=== PATIENT | female | born 1990 | race Caucasian/White ===

== ENCOUNTER 2019-05-04 20:02 | Emergency (ER) | payer MEDICAID, SELFPAY ==
[2019-05-04 20:04] VITALS: BP 122/81; PULSE 98; RESP 18; TEMP 36.6; O2SAT 98; BMI 44.6
--- NOTE | 2019-05-04 21:57 | ECG_ITS ---
Measurements Intervals [place] Rate: 81 P: 38 SD: 145 QRS: 23 QRSD: 102 T: 45 QT: 347 QTc: 405 SINUS RHYTHM WITH SINUS ARRHYTHMIA No previous ECG available for comparison Electronically Signed On 05-06-2019 8:59:41 CDT by Jaswinder Mora M.D. [email or web address]
--- NOTE | 2019-05-04 21:57 | XR_ITS ---
WS: [id number] Portable AP upright chest, 05/04/2019 Clinical Data: cp Comparison: Portable chest, 12/19/2011. Findings: No nodules, masses or effusions are seen. The heart is normal. The pulmonary vascularity is not increased. No pneumonia or pneumothorax is seen. Monitor leads are on the upper abdominal and lo wer chest wall. XR/XR chest 1V portable [id number] Impression: Negative chest.
--- NOTE | 2019-05-04 22:11 | ED_ITS ---
Entered by Caren Wall, acting as scribe for Moises Torres MD May 04, 2019 20:02 HPI - Back Pain/Injury General: Chief Complaint: Back Pain/Injury Stated Complaint: csection 04/16 Time Seen by Provider: 05/04/19 21:51 Source: patient Mode of arrival: ambulatory Limitations: no limitations History of Present Illness: HPI Narrative: Patient is a 29-year-old female who had a on April 16. She states over the last 2 to 3 days she been having some right sided chest and low back pain. States pain is been sharp in nature and is worse with inspiration. She is had some mild shortness of breath. She denies any vomiting. States pain is currently a 2 out of 10. She denies any vaginal discharge or bleeding. She has no history of any blood clots. Severity: mild Associated symptoms: Deny abdominal pain, chills, dysuria, fever(s), nausea or vomiting Review of Systems General: Reports: other (negative unless marked) Const: Denies: fever, chills, body aches or change in appetite Eyes: Denies: blurry vision or eye discomfort ENMT: Denies: throat pain or dental pain Card: Reports: chest pain Resp: Denies: shortness of breath GI: Denies: abdominal pain, nausea, vomiting or diarrhea : Denies: painful urination Musc: Denies: neck pain or back pain Skin/Breast: Denies: rash Neuro: Denies: headache Psych: Denies: depression Dalton/Lymph: Denies: easy bruising All/Imm: Denies: hives PFSH ED PFSH: Social History Smoking and tobacco status: never smoked Physical Exam Const: COMMON NORMALS: no apparent distress, oriented x3 and healthy appearing HENMT: COMMON NORMALS: normocephalic and head/scalp atraumatic HEAD & SCALP: normocephalic and atraumatic Eye: COMMON NORMALS: PERRL and EOMs intact bilaterally PUPIL: Yes PERRL Neck/C-Spine: COMMON NORMALS: full ROM and supple Chest: COMMONS NORMALS: inspection of chest normal and palpation of chest normal Resp: COMMON NORMALS: normal respiratory effort, no retractions, no use of accessory muscles and clear to auscultation bilaterally AUSCULTATION: clear to auscultation bilaterally Cardio: COMMON NORMALS: regular rate, regular rhythm and no murmurs RATE: regular rate RHYTHM: regular rhythm GI: COMMON NORMALS: normal to inspection, nondistended, normoactive bowel sounds, soft to palpation, non-tender and no masses PALPATION: Yes soft Extremity: COMMON NORMALS: normal to inspection and full ROM Neuro: COMMON NORMALS: oriented x3, moves all extremities and no focal motor deficits Psych: COMMON NORMALS: mental status grossly normal, thought process normal and cooperative THOUGHT PROCESS: normal thought process Skin: COMMON NORMALS: no rashes or lesions noted and no wounds GENERAL SKIN EXAM: no rashes or lesions noted Course Vital Signs: Vital signs: Vital Signs Temperature 97.9 F 05/04/19 20:04 Pulse Rate 78 05/05/19 00:29 Respiratory Rate 16 05/05/19 00:29 Blood Pressure 122/81 05/04/19 20:04 Pulse Oximetry 96 05/05/19 00:29 MDM - Back Pain/Injury MDM Narrative: Medical decision making narrative: Patient presents for chest wall pain that is likely muscular in origin. Patient CT of her chest here shows no signs of pulmonary embolism and CT abdomen is negative as well. Lab work is all normal besides elevated d-dimer. Patient is stable for discharge and is to follow-up with her primary care doctor in 3 to 5 days. I did inform her that her liver enzymes are mildly elevated and she is to follow with her doctor to have these rechecked. She is to return if worsening. Lab Data: Labs: Lab Results 05/04/19 05/04/19 05/04/19 Range/Units 22:14 22:14 22:14 WBC 8.8 (4.0-10.0) 10^3/ uL RBC 4.47 (4.1-5.3) 10^6/u L Hgb 11.5 (11.5-15.3) g/dL Hct 36.9 L (37.0-47.0) % MCV 82.6 (81-99) fL MCH 25.7 L (28.0-34.0) pg MCHC 31.2 (30.0-36.0) g/dL RDW 13.9 (12.1-15.1) % Plt Count 396 (130-400) 10^3/c mm MPV 11.5 H (7.4-10.4) fL Neut % (Auto) 76.9 % Lymph % (Auto) 14.0 % Lassen % (Auto) 7.1 % Eos % (Auto) 1.2 % Baso % (Auto) 0.5 % Neut # (Auto) 6.8 (1.8-7.7) 10^3/u L Lymph # (Auto) 1.2 (0.8-4.8) 10^3/u L Lassen # (Auto) 0.6 (0.2-0.9) 10^3/u L Eos # (Auto) 0.1 (0.0-0.8) 10^3/u L Baso # (Auto) 0.0 (0.0-0.1) 10^3/u L Nucleated RBC % (a uto) 0 % Nucleated RBCs # 0.0 /100WBC D-Dimer 2.25 H (0-0.59) ug/mIFE U Sodium 142 (136-145) mmol/L Potassium 3.8 (3.5-5.1) mmol/L Chloride 105 (98-107) mmol/L Carbon Dioxide 23 (22-29) mmol/L Anion Gap 17.8 (5-19) BUN 9 (6-20) mg/dL Creatinine 0.6 (0.5-0.9) mg/dL GFR Calculation 117.4 (90-130) mL/min Glucose 102 (65-115) mg/dL Calculated Osmolal ity 290 (285-295) mOsm/k g Calcium 9.5 (8.5-10.5) mg/dL Total Bilirubin 1.4 H (0.15-1.2) mg/dL AST 581 H (0-32) U/L ALT 513 H (0-33) U/L Alkaline Phosphata se 511 H (35-105) IU/L Total Protein 7.2 (6.6-8.7) g/dL Albumin 4.0 (3.5-5.2) g/dL Globulin 3.2 (1.3-4.6) g/dL Lipase 34 (13-60) U/L Imaging Data^: CT Chest: Radiologist's impression: [address] [place] [address] CT Scan Report Signed Patient: Clari Pascual Unit #: [id number] : 1990 Age/Sex: 29 / F ADM Date: 05/04/19 Loc: ER Room/Bed: Attending Dr: Ordering Provider/Ordering MD: Moises Torres MD Date of Service: 05/04/19 Procedure(s): CT angio chest w abd pel w con Accession Number(s): [id number] Report Number: [id number] PROCEDURE INFORMATION: Exam: CT Angiography Chest With Contrast Exam date and time: 05/04/2019 11:11 PM Age: 29 years old Clinical indication: Abdominal pain; Generalized; Chest pain; Type not specified; Patient HX: 18 days post , previous tumor removal left breast TECHNIQUE: Imaging protocol: Computed tomographic angiography of the chest with intravenous contrast. 3D rendering: MIP and/or 3D reconstructed images were created by the technologist. Total DLP: 2709.47 mGy-cm Radiation optimization: All CT scans at this facility use at least one of these dose optimization techniques: automated exposure control; mA and/or kV adjustment per patient size (includes targeted exams where dose is matched to clinical indication); or iterative reconstruction. Contrast material: OMNIPAQUE 350; Contrast volume: 95 ml; Contrast route: IV; COMPARISON: CR XR chest 1V portable [id number] 05/04/2019 10:18 PM FINDINGS: Pulmonary arteries: The pulmonary arteries are adequately opacified for evaluation to the subsegmental level. There is no filling defect to suggest embolism. Aorta: The thoracic aorta is normal. There is no aneurysm or dissection. Lungs: The right lung is clear. There is a benign calcified granuloma in the left lower lobe. There is no consolidation. Pleural space: Unremarkable. No pneumothorax. No pleural effusion. Heart: The heart is unremarkable. There is no pericardial effusion. Lymph nodes: There is no mediastinal or hilar lymphadenopathy. Bones/joints: Bones are unremarkable. Soft tissues: The extrathoracic soft tissues are unremarkable. IMPRESSION: No pulmonary embolism. PROCEDURE INFORMATION: Exam: CT Abdomen And Pelvis With Contrast Exam date and time: 05/04/2019 11:11 PM Age: 29 years old Clinical indication: Abdominal pain; Generalized; Chest pain; Type not specified; Patient HX: 18 days post , previous tumor removal left breast TECHNIQUE: Imaging protocol: Computed tomography of the abdomen and pelvis with intravenous contrast. Total DLP: 2709.47 mGy-cm Radiation optimization: All CT scans at this facility use at least one of these dose optimization techniques: automated exposure control; mA and/or kV adjustment per patient size (includes targeted exams where dose is matched to clinical indication); or iterative reconstruction. Contrast material: OMNIPAQUE 350; Contrast volume: 95 ml; Contrast route: IV; COMPARISON: CR XR chest 1V portable [id number] 05/04/2019 10:18 PM FINDINGS: Lungs: Lung bases are clear. Liver: The liver is normal. Gallbladder and bile ducts: The gallbladder is normal. There is no biliary dilation. Pancreas: The pancreas is unremarkable. Spleen: The spleen is mildly enlarged. Adrenals: The adrenal glands are unremarkable. Kidneys and ureters: The kidneys are unremarkable. No hydronephrosis or stones. No ureteral dilation. Stomach and bowel: The stomach is unremarkable. The small bowel is nondilated. There is no sign of inflammation. There is mild diverticulosis of the ascending colon without evidence of diverticulitis. Appendix: The appendix is normal. Intraperitoneal space: There is no free air or significant intraperitoneal free fluid. Vasculature: The aorta is unremarkable. There is no aneurysm. Lymph nodes: There is no lymphadenopathy in the retroperitoneum, mesentery, pelvis or inguinal regions. Bladder: The urinary bladder is unremarkable. Reproductive: There is fluid in the endometrial canal and minimal fat stranding along the anterior lower uterine segment consistent with recent section. There is no adnexal mass or cyst. Bones/joints: Bones are unremarkable. Soft tissues: The abdominal wall is intact. Intact transverse lower abdominal incision site. No seroma or hematoma. CT/CT angio chest w abd pel w con IMPRESSION: 1. No acute findings. 2. No apparent complications related to section. EKG Data^: EKG 1: Attestation: I personally reviewed and interpreted this EKG as follows: EKG interpretation date: 05/04/19 EKG interpretation time: 22:11 Interpretation: nsr hr [address] or t wave abnormalities qrs 102 qtc 385 Discharge Plan Discharge Patient Disposition: Home, Self-Care Clinical Impression: Chest wall pain Condition: Stable Prescriptions: New EC-Naprosyn 500 mg tablet,delayed release (DR/EC) 500 mg PO BID PRN (Reason: pain) Qty: 20 RF: 0 No Action ibuprofen 800 mg Tablet 800 mg PO Q4H PRN (Reason: Pain) RF: 0 No Known Home Medications RF: 0 clindamycin HCl RF: 0 Discharge Orders: Discharge Order (Routine); Ordered 05/05/19 Ordered By: Moises Torres Referrals: Rea Vargas APN [Primary Care Provider] - 4-7 days Discharge Diet: Advance as tolerated Discharge Activity: Resume usual activity Patient Instructions: Chest Pain - Chest Wall Discharge Date/Time: 05/05/19 00:29 Coding Level of Care Code ED Market Research Associate for Chg Fwd Exam Comprehensive The documentation recorded by the [facility] greene Stephanie Lyn, accurately ref lects the service I personally performed and the decisions made by Brian alvarenga Korby, MD May 04, 2019 20:02
[2019-05-04 22:29] LABS: Basophils % 0.5 %; Eosinophils # 0.1 10^3/uL (0.0-0.8); Eosinophils % 1.2 %; Hematocrit 36.9 % (37.0-47.0); Hemoglobin 11.5 g/dL (11.5-15.3); Lymphocytes # 1.2 10^3/uL (0.8-4.8); Mean Corpuscular HGB Conc 31.2 g/dL (30.0-36.0); Mean Corpuscular Hemoglobin 25.7 pg (28.0-34.0); Mean Corpuscular Volume 82.6 fL (81-99); Mean Platelet Volume 11.5 fL (7.4-10.4); Monocytes # 0.6 10^3/uL (0.2-0.9); Monocytes % 7.1 %; Neutrophils # 6.8 10^3/uL (1.8-7.7); Neutrophils % 76.9 %; Nucleated Red Blood Cells % 0 %; Platelet Count 396 10^3/cmm (130-400); Red Blood Count 4.47 10^6/uL (4.1-5.3); Red Cell Distribution Width 13.9 % (12.1-15.1); White Blood Count 8.8 10^3/uL (4.0-10.0)
[2019-05-04 22:39] LABS: D Dimer 2.25 ug/mIFEU (0-0.59)
[2019-05-04 22:42] LABS: Alanine Aminotransferase 513 U/L (0-33); Alkaline Phosphatase 511 IU/L (35-105); Anion Gap 17.8 (5-19); Aspartate Amino Transferase 581 U/L (0-32); Blood Urea Nitrogen 9 mg/dL (6-20); Calcium 9.5 mg/dL (8.5-10.5); Carbon Dioxide 23 mmol/L (22-29); Chloride 105 mmol/L (98-107); Creatinine Clr Calc Pharmacy 173.1343; Globulin 3.2 g/dL (1.3-4.6); Glomerular Filtration Rate 117.4 mL/min (90-130); Glucose 102 mg/dL (65-115); Lipase 34 U/L (13-60); Osmolality Calculated 290 mOsm/kg (285-295); Potassium 3.8 mmol/L (3.5-5.1); Sodium 142 mmol/L (136-145); Total Bilirubin 1.4 mg/dL (0.15-1.2); Total Protein 7.2 g/dL (6.6-8.7)
--- NOTE | 2019-05-04 22:45 | CTR_ITS ---
PROCEDURE INFORMATION: Exam: CT Angiography Chest With Contrast Exam date and time: 05/04/2019 11:11 PM Age: 29 years old Clinical indication: Abdominal pain; Generalized; Chest pain; Type not specified; Patient HX: 18 days post , previous tumor removal left breast TECHNIQUE: Imaging protocol: Computed tomographic angiography of the chest with intravenous contrast. 3D rendering: MIP and/or 3D reconstructed images were created by the technologist. Total DLP: 2709.47 mGy-cm Radiation optimization: All CT scans at this facility use at least one of these dose optimization techniques: automated exposure control; mA and/or kV adjustment per patient size (includes targeted exams where dose is matched to clinical indication); or iterative reconstruction. Contrast material: OMNIPAQUE 350; Contrast volume: 95 ml; Contrast route: IV; COMPARISON: CR XR chest 1V portable [id number] 05/04/2019 10:18 PM FINDINGS: Pulmonary arteries: The pulmonary arteries are adequately opacified for evaluation to the subsegmental level. There is no filling defect to suggest embolism. Aorta: The thoracic aorta is normal. There is no aneurysm or dissection. Lungs: The right lung is clear. There is a benign calcified granuloma in the left lower lobe. There is no consolidation. Pleural space: Unremarkable. No pneumothorax. No pleural effusion. Heart: The heart is unremarkable. There is no pericardial effusion. Lymph nodes: There is no mediastinal or hilar lymphadenopathy. Bones/joints: Bones are unremarkable. Soft tissues: The extrathoracic soft tissues are unremarkable. IMPRESSION: No pulmonary embolism. PROCEDURE INFORMATION: Exam: CT Abdomen And Pelvis With Contrast Exam date and time: 05/04/2019 11:11 PM Age: 29 years old Clinical indication: Abdominal pain; Generalized; Chest pain; Type not specified; Patient HX: 18 days post , previous tumor removal left breast TECHNIQUE: Imaging protocol: Computed tomography of the abdomen and pelvis with intravenous contrast. Total DLP: 2709.47 mGy-cm Radiation optimization: All CT scans at this facility use at least one of these dose optimization techniques: automated exposure control; mA and/or kV adjustment per patient size (includes targeted exams where dose is matched to clinical indication); or iterative reconstruction. Contrast material: OMNIPAQUE 350; Contrast volume: 95 ml; Contrast route: IV; COMPARISON: CR XR chest 1V portable [id number] 05/04/2019 10:18 PM FINDINGS: Lungs: Lung bases are clear. Liver: The liver is normal. Gallbladder and bile ducts: The gallbladder is normal. There is no biliary dilation. Pancreas: The pancreas is unremarkable. Spleen: The spleen is mildly enlarged. Adrenals: The adrenal glands are unremarkable. Kidneys and ureters: The kidneys are unremarkable. No hydronephrosis or stones. No ureteral dilation. Stomach and bowel: The stomach is unremarkable. The small bowel is nondilated. There is no sign of inflammation. There is mild diverticulosis of the ascending colon without evidence of diverticulitis. Appendix: The appendix is normal. Intraperitoneal space: There is no free air or significant intraperitoneal free fluid. Vasculature: The aorta is unremarkable. There is no aneurysm. Lymph nodes: There is no lymphadenopathy in the retroperitoneum, mesentery, pelvis or inguinal regions. Bladder: The urinary bladder is unremarkable. Reproductive: There is fluid in the endometrial canal and minimal fat stranding along the anterior lower uterine segment consistent with recent section. There is no adnexal mass or cyst. Bones/joints: Bones are unremarkable. Soft tissues: The abdominal wall is intact. Intact transverse lower abdominal incision site. No seroma or hematoma. CT/CT angio chest w abd pel w con IMPRESSION: 1. No acute findings. 2. No apparent complications related to section. Radiation Dose CTDIVOL = (mGy): DLP = 2709.47~2709.47 (mGy-cm)
[2019-05-04] MEDS: iohexol 350 mg/mL 100 mL Btl IV (23:18)
[2019-05-05 00:29] VITALS: PULSE 78; RESP 16; O2SAT 96
== END 2019-05-05 00:29 | disposition home or self-care (01) ==
PROVIDERS: Emergency Provider Emergency Medicine; Family Provider Nurse Practitioner Family; PCP Nurse Practitioner Family
DX: R07.89 Other chest pain (principal)
CPT/HCPCS: 12345; 36415; 71045; 71275; 74177; 80053; 83690; 85025; 85378; 93005; 99282; 99284; Q9967

== ENCOUNTER 2019-05-06 17:11 | Emergency (ER) | payer MEDICAID, SELFPAY ==
[2019-05-06 17:33] VITALS: BP 151/91; PULSE 88; RESP 16; TEMP 37.4; O2SAT 99; BMI 46.0
[2019-05-06 18:14] LABS: Basophils % 0.4 %; Eosinophils # 0.2 10^3/uL (0.0-0.8); Eosinophils % 2.3 %; Hematocrit 37.3 % (37.0-47.0); Hemoglobin 11.3 g/dL (11.5-15.3); Lymphocytes # 1.5 10^3/uL (0.8-4.8); Lymphocytes % 15.9 %; Mean Corpuscular HGB Conc 30.3 g/dL (30.0-36.0); Mean Corpuscular Hemoglobin 25.3 pg (28.0-34.0); Mean Corpuscular Volume 83.4 fL (81-99); Mean Platelet Volume 10.8 fL (7.4-10.4); Monocytes # 0.6 10^3/uL (0.2-0.9); Monocytes % 6.4 %; Neutrophils # 6.9 10^3/uL (1.8-7.7); Neutrophils % 74.2 %; Nucleated Red Blood Cells % 0 %; Platelet Count 408 10^3/cmm (130-400); Red Blood Count 4.47 10^6/uL (4.1-5.3); Red Cell Distribution Width 14.1 % (12.1-15.1); White Blood Count 9.3 10^3/uL (4.0-10.0)
[2019-05-06 18:34] LABS: Alanine Aminotransferase 664 U/L (0-33); Albumin Level 4.1 g/dL (3.5-5.2); Alkaline Phosphatase 471 IU/L (35-105); Anion Gap 15.5 (5-19); Aspartate Amino Transferase 225 U/L (0-32); Blood Urea Nitrogen 7 mg/dL (6-20); Calcium 9.4 mg/dL (8.5-10.5); Carbon Dioxide 26 mmol/L (22-29); Chloride 104 mmol/L (98-107); Globulin 3.1 g/dL (1.3-4.6); Glomerular Filtration Rate 117.4 mL/min (90-130); Glucose 95 mg/dL (65-115); Osmolality Calculated 290 mOsm/kg (285-295); Potassium 3.5 mmol/L (3.5-5.1); Sodium 142 mmol/L (136-145); Total Bilirubin 0.4 mg/dL (0.15-1.2); Total Protein 7.2 g/dL (6.6-8.7)
[2019-05-06 18:43] VITALS: RESP 18
--- NOTE | 2019-05-06 18:56 | ED_ITS ---
Entered by Marjorie Mendoza, acting as scribe for Keyonna Lucas MD May 06, 2019 17:11 HPI - General Adult General: Chief complaint: General Medical Stated complaint: NOT FEELING WELL Time Seen by Provider: 05/06/19 18:42 Source: patient, RN notes reviewed and old records reviewed Mode of arrival: ambulatory Limitations: no limitations History of Present Illness: HPI narrative: 29 yo female presents to ED with complaints of RUQ abdominal pain. The patient was seen at [facility] yesterday (faxed medical record release at 1716 to [phone]). The patient stated her lab results were significantly different there yesterday morning than what they were here yesterday evening. She said she no longer has a crushing pain in her R shoulder and chest but it is now a shooting pain going from the R side of her neck to her tailbone, including her R shoulder and R side. She states the doctor at [facility] said she needed an ultrasound of her gallbladder. She said she felt like she had a fever last night (no thermometer). complaint: RUQ tenderness Onset (ago): day(s) (2) Location: abdomen and right Radiation: back and neck Severity: moderate Quality: stabbing Pain Consistency: constant Relieving factors: none Exacerbating factors: none Associated symptoms: Deny chest pain, dyspnea, headache(s), nausea, rash or vomiting Treatments prior to arrival: NSAID Review of Systems General: Reports: 10 or more systems reviewed and unremarkable except in HPI and below Const: Denies: fever or chills Eyes: Denies: change in vision ENMT: Denies: throat pain Card: Denies: chest pain Resp: Denies: shortness of breath GI: Denies: abdominal pain, nausea, vomiting or change in bowel habits : Denies: difficulty urinating Musc: Denies: muscle weakness Skin/Breast: Denies: rash Neuro: Denies: headache Psych: Denies: hopelessness or suicidal ideation Endo: Denies: excessive urination Dalton/Lymph: Denies: easy bruising or easy bleeding All/Imm: Denies: hives PFSH ED PFSH: Social History Smoking and tobacco status: never smoked Physical Exam Const: COMMON NORMALS: no apparent distress, average body habitus, oriented x 3, no limitations, healthy appearing, alert and well nourished HENMT: COMMON NORMALS: normocephalic, external ears normal and external nose normal HEAD & SCALP: normocephalic NOSE: external nose normal EXTERNAL EAR: Yes external ears normal MOUTH: oral and palatal mucosa normal THROAT: posterior oropharynx normal Eye: COMMON NORMALS: PERRL, EOMs intact bilaterally, conjunctivae normal, no scleral icterus and normal visual [place] by confrontation CONJUNCTIVA: Yes conjunctivae normal PUPIL: Yes PERRL Neck/C-Spine: COMMON NORMALS: full ROM, no lymphadenopathy, supple, no me ningeal signs and no JVD CERVICAL SPINE: Yes cervical ROM normal Lymph: LYMPHATIC: no lymphadenopathy noted Chest: COMMONS NORMALS: inspection of chest normal Resp: COMMON NORMALS: normal respiratory effort, no retractions, no use of accessory muscles and clear to auscultation bilaterally EFFORT & INSPECTION: Yes able to speak in complete sentences AUSCULTATION: clear to auscultation bilaterally Cardio: COMMON NORMALS: no JVD, regular rate, regular rhythm, no gallops, no clicks, no murmurs and no rub RATE: regular rate RHYTHM: regular rhythm GI: COMMON NORMALS: normal to inspection, nondistended, normoactive bowel sounds, soft to palpation and non-tender INSPECTION: Yes normal to inspection AUSCULTATION: Yes normoactive bowel sounds PALPATION: Yes soft : COMMON NORMALS: Yes no CVA tenderness BLADDER/KIDNEY EXAM: Yes no CVA tenderness Back/Pelvis: COMMON NORMALS: no CVA tenderness OTHER: Normal range of motion Extremity: COMMON NORMALS: normal to inspection GENERAL: Yes normal exam except as noted Neuro: COMMON NORMALS: oriented x3 SENSORIUM/ORIENTATION: Yes alert MENINGEAL SIGNS: Yes no meningeal signs SPEECH: speech normal Psych: COMMON NORMALS: mental status grossly normal, thought process normal, cooperative, affect normal, speech normal, activity/motor behavior normal, denies hallucinations, denies homicidal ideation and denies suicidal ideation SPEECH: Yes normal speech THOUGHT PROCESS: normal thought process Skin: COMMON NORMALS: no rashes or lesions noted GENERAL SKIN EXAM: no rashes or lesions noted Course Vital Signs: Vital signs: Vital Signs Temperature 99.4 F 05/06/19 17:33 Pulse Rate 88 05/06/19 17:33 Respiratory Rate 18 05/06/19 18:43 Blood Pressure 151/91 05/06/19 17:33 Pulse Oximetry 99 05/06/19 17:33 MDM - General Adult MDM Narrative: Medical decision making narrative: Patient in no acute distress. We were able to get her records from [facility] which will be scanned in the computer. On 05/04/2019 LFTs were approximately 500 range, at [facility] they were double that yesterday when she was seen there this was [facility]. On recheck today they are back down to 500 and lower than on 05 03. As I discussed with her, I do not think that her LFTs are the cause of her pain more likely it is the increased stool burden on her imaging and will send her home with a bottle of mag citrate and she will start taking MiraLAX. She tells me that she did not have a bowel movement for 2 weeks prior to having her baby and she is had intermittent problems with constipation. Lab Data: Labs: Lab Results 05/06/19 05/06/19 Range/Units 18:08 18:08 WBC 9.3 (4.0-10.0) 10^3/ uL RBC 4.47 (4.1-5.3) 10^6/u L Hgb 11.3 L (11.5-15.3) g/dL Hct 37.3 (37.0-47.0) % MCV 83.4 (81-99) fL MCH 25.3 L (28.0-34.0) pg MCHC 30.3 (30.0-36.0) g/dL RDW 14.1 (12.1-15.1) % Plt Count 408 H (130-400) 10^3/c mm MPV 10.8 H (7.4-10.4) fL Neut % (Auto) 74.2 % Lymph % (Auto) 15.9 % Frio % (Auto) 6.4 % Eos % (Auto) 2.3 % Baso % (Auto) 0.4 % Neut # (Auto) 6.9 (1.8-7.7) 10^3/u L Lymph # (Auto) 1.5 (0.8-4.8) 10^3/u L Frio # (Auto) 0.6 (0.2-0.9) 10^3/u L Eos # (Auto) 0.2 (0.0-0.8) 10^3/u L Baso # (Auto) 0.0 (0.0-0.1) 10^3/u L Nucleated RBC % (a uto) 0 % Nucleated RBCs # 0.0 /100WBC Sodium 142 (136-145) mmol/L Potassium 3.5 (3.5-5.1) mmol/L Chloride 104 (98-107) mmol/L Carbon Dioxide 26 (22-29) mmol/L Anion Gap 15.5 (5-19) BUN 7 (6-20) mg/dL Creatinine 0.6 (0.5-0.9) mg/dL GFR Calculation 117.4 (90-130) mL/min Glucose 95 (65-115) mg/dL Calculated Osmolal ity 290 (285-295) mOsm/k g Calcium 9.4 (8.5-10.5) mg/dL Total Bilirubin 0.4 (0.15-1.2) mg/dL AST 225 H (0-32) U/L ALT 664 H (0-33) U/L Alkaline Phosphata se 471 H (35-105) IU/L Total Protein 7.2 (6.6-8.7) g/dL Albumin 4.1 (3.5-5.2) g/dL Globulin 3.1 (1.3-4.6) g/dL Imaging Data^: KUB: Attestation: I personally reviewed and interpreted this imaging study as follows: My impression: Significant increased stool burden no free air Discharge Plan Discharge Patient Disposition: Home, Self-Care Clinical Impression: Abdominal pain Qualifiers: Abdominal location: generalized Qualified Code(s): R10.84 - Generalized abdominal pain Constipation Qualifiers: Constipation type: unspecified constipation type Qualified Code(s): K59.00 - Constipation, unspecified Condition: Stable Prescriptions: No Action ibuprofen 800 mg Tablet 800 mg PO Q4H PRN (Reason: Pain) RF: 0 clindamycin HCl 300 mg PO TID RF: 0 Referrals: Rea Vargas APN [Primary Care Provider] - Patient Instructions: Constipation (ED), Abdominal Pain (ED) Activity Restrictions/Additional Instructions: Drink the entire bottle of magnesium citrate when you get home. Start taking MiraLAX as well [id number]. He will need to follow-up with a primary care provider to monitor your liver enzymes as we discussed. Coding Level of Care Code ED E Marketing Specialist for Chg Fwd Exam Comprehensive The documentation recorded by the Reji greene Valerie R, accurately reflects the service I personally performed and the decisions made by me, Keyonna Lucas MD May 06, 2019 17:11
--- NOTE | 2019-05-06 19:09 | XR_ITS ---
WS: [id number] KUB, 05/06/2019 Clinical Data: abd pain, constipation Comparison: None. Findings: No abnormal intraabdominal masses or calcifications are seen. There is no dilatated small bowel or ev idence of obstruction. There is fecal material throughout the colon. The bladder is partly full. XR/XR KUB portable [id number] Impression: Negative KUB.
[2019-05-06] MEDS: magnesium citrate Btl 296 mL 150 ML PO (20:38)
[2019-05-06] MEDS: cyclobenzaprine 10 mg Tablet PO (20:38)
[2019-05-06 20:39] VITALS: BP 128/77; PULSE 87; RESP 18; O2SAT 97
--- NOTE | 2019-05-07 11:12 | DCPLANNER ---
Addendum entered by Georgia Castle 05/07/19 11:26: manager intelligence tried to call patient again, this time patients answered the phone, gave him the appointment information. Original Note: manager intelligence had message to speak with patient about getting established with a primary care physician. manager intelligence spoke with patient about getting established with a primary care physician. Patient stated at first that she was not sure that she wanted to follow up with anyone. manager intelligence explained to patient that nurse outreach case manager had message to speak with patient about getting established with a primary care physician, and if patient would like for me to get a follow up appointment scheduled that nurse outreach case manager would be more than happy to schedule a follow up appointment for patient. manager intelligence gave patient the options of Lina Kwong or [place] [facility] patient stated that she would like to be established with Dr. Glasgow. manager intelligence [place] [facility] spoke with Lise, a follow up appointment was scheduled for Saturday, May 27, 2019 at 10:[address] Glasgow. manager intelligence called patient back, she did not answer the phone and no voicemail set up to inform patient of the scheduled appointment. manager intelligence will send patient a letter with the appointment information.
--- NOTE | 2019-07-21 07:41 | DCPLANNER ---
Patient did not attend appointment scheduled for 05.27.19 with [facility] [place].
== END 2019-05-06 20:39 | disposition home or self-care (01) ==
PROVIDERS: Emergency Provider Emergency Medicine; Family Provider Nurse Practitioner Family; PCP Nurse Practitioner Family
DX: R10.9 Unspecified abdominal pain (principal); K59.00 Constipation, unspecified
CPT/HCPCS: 12345; 36415; 74018; 80053; 85025; 99281; 99283

== ENCOUNTER 2019-05-10 08:09 | Emergency (ER) | payer MEDICAID, SELFPAY ==
[2019-05-10 08:10] VITALS: BP 129/75; PULSE 72; RESP 16; TEMP 36.6; O2SAT 98; BMI 46.0
--- NOTE | 2019-05-10 08:22 | ED_ITS ---
HPI - General Adult General: Chief complaint: General Medical Stated complaint: back pain Time Seen by Provider: 05/10/19 08:15 History of Present Illness: HPI narrative: Patient is a 29-year-old female who comes to the ED with back pain. She describes the back pain as on the right side of the thoracic region of her back. Patient says pain started on May 03. Patient did have a 3 weeks ago. She has been to this ED 2 times in the past week and a half for same complaint. She also was seen at [facility] for the same complaint. She states each time make an extensive work-up was performed including labs and a CT scan and no identifiable cause. Patient was told to take ibuprofen for pain and she says it is not helping. Denies any bladder or bowel symptoms. Patient is not breast-feeding her child, she is using formula. Associated symptoms: Deny chest pain, dyspnea, headache(s), nausea, rash, palpitations or vomiting Review of Systems 2 Const: Denies: fever, chills or fatigue Eyes: Denies: change in vision or eye discomfort ENMT: Denies: throat pain, painful swallowing, nasal discharge or nasal congestion Card: Denies: chest pain, palpitations, edema, swelling of feet/ankles, shortness of breath on exertion or shortness of breath when lying down Resp: Denies: shortness of breath, productive cough or non-productive cough GI: Denies: abdominal pain, nausea, vomiting, diarrhea, constipation or blood in stool : Denies: flank pain, painful urination or blood in urine Musc: Reports: back pain (Right side mid thoracic); Denies: neck pain or extremity swelling Skin/Breast: Denies: rash or new lesion Neuro: Denies: headache, numbness in extremities or weakness in extremities [facility] ED PFSH: Social History Smoking and tobacco status: never smoked Physical Exam Narrative: EXAM NARRATIVE: Patient is a 29-year-old female who is sitting comfortably on the exam bed when I enter the room she appears in no acute distress or acute pain. I witnessed patient carrying a diaper bag and and baby with a carrier she came into the ED. She did not appear to have any pain when walking back to the room while carrying a bag and baby. Const: COMMON NORMALS: oriented x3 HENMT: COMMON NORMALS: normocephalic HEAD & SCALP: normocephalic MOUTH: oral and palatal mucosa normal THROAT: posterior oropharynx normal and uvula midline Neck/C-Spine: COMMON NORMALS: supple GENERAL: Yes normal visual inspection Resp: COMMON NORMALS: normal respiratory effort, no retractions, no use of accessory muscles and clear to auscultation bilaterally AUSCULTATION: clear to auscultation bilaterally Cardio: COMMON NORMALS: regular rate, regular rhythm, S1 normal heart sound, S2 normal heart sound, no gallops, no clicks, no murmurs and peripheral pulses 2+ throughout RATE: regular rate RHYTHM: regular rhythm HEART SOUNDS: S1 normal and S2 normal PERIPHERAL PULSES: pulses 2+ throughout GI: COMMON NORMALS: normal to inspection, nondistended, normoactive bowel sounds, soft to palpation, non-tender and no masses PALPATION: Yes soft : COMMON NORMALS: Yes no CVA tenderness BLADDER/KIDNEY EXAM: Yes no CVA tenderness Back/Pelvis: COMMON NORMALS: no CVA tenderness THORACIC SPINE/UPPER BACK: Yes paraspinal muscle tenderness Thoracic paraspinal muscle tenderness: right Extremity: COMMON NORMALS: normal to inspection Neuro: COMMON NORMALS: oriented x3 and moves all extremities Skin: COMMON NORMALS: no rashes or lesions noted GENERAL SKIN EXAM: no rashes or lesions noted and dry skin Course ED course: I asked the patient if she is breast-feeding her child and she said no she is not she is using formula. Mother said the baby was not gaining sufficient weight so the doctor told her to switch to all formula. I informed the mother about the risks of breast-feeding while taking medication like tramadol or Robaxin. Mother understood risk and said she is not breast-feeding and will not breast-feed while taking these medications. Vital Signs: Vital signs: Vital Signs Temperature 97.8 F 05/10/19 08:10 Pulse Rate 72 05/10/19 08:10 Respiratory Rate 16 05/10/19 08:10 Blood Pressure 129/75 05/10/19 08:10 Pulse Oximetry 98 05/10/19 08:10 Discharge Plan Discharge Patient Disposition: Home, Self-Care Clinical Impression: Thoracic back pain Qualifiers: Chronicity: acute Back pain laterality: right Qualified Code(s): M54.6 - Pain in thoracic spine Condition: Stable Prescriptions: New Robaxin-750 750 mg tablet 750 mg PO Q8H Qty: 10 RF: 0 No Action ibuprofen 800 mg Tablet 800 mg PO Q4H PRN (Reason: Pain) RF: 0 clindamycin HCl 300 mg PO TID RF: 0 Discharge Orders: Discharge Order (Routine); Ordered 05/10/19 Ordered By: Steve Castaneda Referrals: Rea Vargas APN [Primary Care Provider] - Discharge Diet: Regular Discharge Activity: Resume usual activity and Increase activity as tolerated Patient Instructions: Back Pain (ED) Activity Restrictions/Additional Instructions: Follow-up with your PCP in 7 days for reevaluation. Take the tramadol and Robaxin as prescribed. Remember that Robaxin can be sedating so take at night before bed. You can apply ice and/or warm heat to back to help with some relief. Drink plenty fluids and stay hydrated. Go to your regularly scheduled follow-up appointment post . Discharge Date/Time: 05/10/19 09:13 Coding Level of Care Code ED General Partner for Samrag Fwd Exam Comprehensive
[2019-05-10] MEDS: TRAMadol 50 mg Tablet 100 MG PO (08:55)
== END 2019-05-10 09:13 | disposition home or self-care (01) ==
PROVIDERS: Emergency Provider Physician Assistant; Family Provider Nurse Practitioner Family; PCP Nurse Practitioner Family
DX: M54.6 Pain in thoracic spine (principal)
CPT/HCPCS: 12345; 99281; 99283

== ENCOUNTER 2019-06-12 12:17 | Outpatient (CLI) | payer MEDICAID, SELFPAY ==
--- NOTE | 2019-06-12 10:15 | US_ITS ---
WS: [id number] RIGHT UPPER QUADRANT ULTRASOUND HISTORY: abdominal Pain COMPARISON: None available. Liver: 17.5 cm in length. Coarsened echotexture from hepatic steatosis. No bile duct dilatation. Gallbladder: Well distended gallbladder. There are tiny foci with minimal shadowing in the gallbladde r consistent with stones. No gallbladder wall thickening. CBD: 0.7 cm, mildly enlarged. Pancreas: Poorly visualized. Right kidney: 12.5 cm in length. Normal echogenicity with no mass or hydronephrosis. Aorta and IVC: Unremarkable. No ascites. US/US gall bladder [id number] IMPRESSION: 1. Cholelithiasis without evidence for acute cholecystitis. 2. Common bile duct is top normal size. Similar to the prior CT from 05/04/2019.
== END 2019-06-12 12:18 | disposition home or self-care (01) ==
LOC: RADWPI 12:21
PROVIDERS: Family Provider Nurse Practitioner Family; PCP Nurse Practitioner Family; Visit Provider Surgery
DX: R10.9 Unspecified abdominal pain (principal); K80.20 Calculus of gallbladder without cholecystitis without obstruction
CPT/HCPCS: 76705

== ENCOUNTER → 2022-06-07 11:15 | Outpatient (BNVA) | payer MEDICAID, SELFPAY | PROVIDERS: Family Provider Nurse Practitioner Family; PCP Nurse Practitioner Family; Visit Provider Nurse Practitioner Family | DX: G43.909 Migraine, unspecified, not intractable, without status migrainosus (principal); N64.4 Mastodynia; Z13.6 Encounter for screening for cardiovascular disorders | CPT/HCPCS: 80053; 80061; 81025; 82607; 83735; 84146; 84443; 85025 ==

== ENCOUNTER → 2023-01-10 10:02 | Outpatient (BNVA) | payer MEDICAID, SELFPAY | PROVIDERS: Family Provider Nurse Practitioner Family; PCP Nurse Practitioner Family; Visit Provider Nurse Practitioner Family | DX: M25.50 Pain in unspecified joint (principal); G62.9 Polyneuropathy, unspecified; K58.9 Irritable bowel syndrome, unspecified; M79.10 Myalgia, unspecified site; E66.9 Obesity, unspecified; K21.9 Gastro-esophageal reflux disease without esophagitis; K76.0 Fatty (change of) liver, not elsewhere classified; R00.2 Palpitations; G43.909 Migraine, unspecified, not intractable, without status migrainosus; G89.29 Other chronic pain; M54.9 Dorsalgia, unspecified; R11.0 Nausea | CPT/HCPCS: 80053; 80307; 82306; 82607; 82746; 85651; 86003; 86008; 86140; 86200; 86431; 86618; 86666; 86705; 86706; 86709; 86757; 86803; 87340 ==

== ENCOUNTER 2023-01-23 08:36 | Outpatient (CLI) | payer MEDICAID, SELFPAY ==
--- NOTE | 2023-01-23 09:30 | US_ITS ---
WS: [id number] RIGHT UPPER QUADRANT ULTRASOUND HISTORY: fatty liver, N/V COMPARISON: 06/12/2019 Liver: 18.3 cm in length. Liver is measuring top normal size. Coarse echotexture throughout the liver . Smooth surface of the liver. No mass identified. Normal bile ducts. Portal Vein: Normal hepatopetal flow with monophasic waveform. Gallbladder: Normally distended gallbladder with stones. No pericholecystic fluid. CBD: 0.7 cm Pancreas: Normal size and echogenicity. Right kidney: 12.5 cm in length. Normal size and echogenicity. No hydronephrosis or mass. Aorta and IVC: Unremarkable abdominal aorta and IVC. No ascites. IMPRESSION: 1. Mild hepatic steatosis and hepatomegaly. Similar to the prior study from 2019. 2. Cholelithiasis without acute cholecystitis.
== END 2023-01-23 08:37 | disposition home or self-care (01) ==
LOC: RAD 08:36
PROVIDERS: Family Provider Nurse Practitioner Family; PCP Nurse Practitioner Family; Visit Provider Nurse Practitioner Family
DX: K76.0 Fatty (change of) liver, not elsewhere classified (principal); R11.2 Nausea with vomiting, unspecified; R16.0 Hepatomegaly, not elsewhere classified; K80.20 Calculus of gallbladder without cholecystitis without obstruction
CPT/HCPCS: 76705

== ENCOUNTER → 2023-01-25 08:54 | Outpatient (BNVA) | payer MEDICAID, SELFPAY | PROVIDERS: Family Provider Nurse Practitioner Family; PCP Nurse Practitioner Family; Visit Provider Nurse Practitioner Family | DX: M54.9 Dorsalgia, unspecified (principal); G89.29 Other chronic pain | CPT/HCPCS: 72100 ==

== ENCOUNTER → 2023-04-12 11:55 | Outpatient (BNVA) | payer MEDICAID, SELFPAY | PROVIDERS: Family Provider Nurse Practitioner Family; PCP Nurse Practitioner Family; Visit Provider Nurse Practitioner Family | DX: K21.9 Gastro-esophageal reflux disease without esophagitis (principal); K58.9 Irritable bowel syndrome, unspecified; M25.50 Pain in unspecified joint; M54.9 Dorsalgia, unspecified; G89.29 Other chronic pain; G62.9 Polyneuropathy, unspecified | CPT/HCPCS: 80053; 80061; 85025 ==

== ENCOUNTER → 2023-05-03 11:59 | Outpatient (BNVA) | payer MEDICAID, SELFPAY | PROVIDERS: Family Provider Nurse Practitioner Family; PCP Nurse Practitioner Family; Visit Provider Nurse Practitioner Family | DX: M25.50 Pain in unspecified joint (principal) | CPT/HCPCS: 85651; 86140; 86160; 86162; 86235; 86255; 86376 ==

== ENCOUNTER → 2023-06-12 10:26 | Outpatient (BNVA) | payer MEDICAID, SELFPAY | PROVIDERS: Family Provider Nurse Practitioner Family; PCP Nurse Practitioner Family; Visit Provider Anesthesiology Pain Medicine | DX: M54.16 Radiculopathy, lumbar region (principal); M54.6 Pain in thoracic spine; M47.894 Other spondylosis, thoracic region | CPT/HCPCS: 72072 ==

== ENCOUNTER → 2023-08-05 09:55 | Outpatient (BNVA) | payer MEDICAID, SELFPAY | PROVIDERS: Family Provider Nurse Practitioner Family; PCP Nurse Practitioner Family; Visit Provider Nurse Practitioner Family | DX: M25.50 Pain in unspecified joint (principal); M79.10 Myalgia, unspecified site; M79.7 Fibromyalgia; E66.01 Morbid (severe) obesity due to excess calories; Z68.43 Body mass index [BMI] 50.0-59.9, adult | CPT/HCPCS: 80053; 80061; 82785; 83036; 84443; 85025; 85651; 86001; 86003; 86140; 86160; 86162; 86200; 86235; 86255; 86376; 86431 ==

== ENCOUNTER 2024-04-09 14:01 | Outpatient (CLI) | payer MEDICAID, SELFPAY ==
--- NOTE | 2024-04-09 15:15 | MR_ITS ---
WS: [id number] MRI THORACIC SPINE noncontrast HISTORY: PAIN IN THORACIC SPINE COMPARISON: Thoracic radiograph 06/12/2023 TECHNIQUE: Multiplanar sequences are performed in sagittal and axial planes. Normal thoracic alignment. No fracture or marrow edema. Disc spaces are well preserved. Signal within the cord is normal. No cord atrophy or enlargement. No syrinx. Conus tapers normally and ends at L1. T1-2: Normal. T2-3: Normal. T3-4: Normal. T4-5: Normal. T5-6: Normal. T6-7: Normal. T7-8: Normal. T8-9: Normal. T9-10: Mild bilateral facet arthritis. No stenosis. T10-11: Mild facet arthritis, LEFT greater than RIGHT. No stenosis. T11-12: Normal. MR/MR thoracic spin wo con* [id number] IMPRESSION: 1. No thoracic spine fracture. 2. No central or foraminal stenosis of any significance or disc protrusions. 3. No cord syrinx. 4. Very minimal facet joint arthropathy at T9-10 and T11-12.
== END 2024-04-09 14:02 | disposition home or self-care (01) ==
PROVIDERS: Family Provider Nurse Practitioner Family; Visit Provider Anesthesiology Pain Medicine
DX: M54.6 Pain in thoracic spine (principal); M47.894 Other spondylosis, thoracic region
CPT/HCPCS: 72146

== ENCOUNTER → 2024-10-13 11:52 | Outpatient (BNVA) | payer MEDICAID, SELFPAY | PROVIDERS: Family Provider Nurse Practitioner Family; Referring Provider Physician Assistant; Visit Provider Internal Medicine Rheumatology | DX: M06.00 Rheumatoid arthritis without rheumatoid factor, unspecified site (principal) | CPT/HCPCS: 36415; 80076; 82306; 82565; 85025; 85651; 86140; 86480; 86704; 86803; 87340 ==

== ENCOUNTER 2024-11-10 12:40 | Outpatient (CLI) | payer MEDICAID, SELFPAY ==
[2024-11-10 13:35] LABS: Hematocrit 41.7 % (36-47); Hemoglobin 13.30 g/dL (11.27-16.99); Mean Corpuscular HGB Conc 31.9 g/dL (30-55); Mean Corpuscular Hemoglobin 28.5 pg (27-33); Mean Corpuscular Volume 89.5 fl (85-98); Nucleated Red Blood Cells % 0 %; Platelet Count 330 10^3/cmm (157-399); Red Blood Count 4.66 10^6/uL (3.85-5.65); White Blood Count 9.36 10^3/uL (3.29-11.43)
[2024-11-10 14:00] LABS: Alanine Aminotransferase 39 U/L (0-33); Albumin Level 4.2 g/dL (3.5-5.2); Alkaline Phosphatase 80 U/L (35-105); Aspartate Amino Transferase 28 U/L (0-32); Globulin 3.4 g/dL (1.3-4.6); Total Protein 7.6 g/dL (6.6-8.7)
== END 2024-11-10 12:41 | disposition home or self-care (01) ==
LOC: LAB 12:43
PROVIDERS: PCP Physician Assistant; Visit Provider Internal Medicine Rheumatology
DX: Z79.899 Other long term (current) drug therapy (principal)
CPT/HCPCS: 36415; 80076; 82565; 85025; 85651; 86140